=== PATIENT | female | born 1985 | race Two or more races ===

== ENCOUNTER 2019-04-17 08:33 | Emergency (ER) | payer OTHER ==
[~2019-04-17] VITALS: Ht 160 cm; Wt 61.6 kg
[2019-04-17 08:47] VITALS: BP 102/67
[2019-04-17] MEDS ORDERED: IV NORMAL SALINE 1,000ML 1,000 ML IV SCH (09:09)
--- NOTE | 2019-04-17 09:16 | PHYS DOC ---
Past History Past Medical History: Other Past Surgical History: Cholecystectomy, Alcohol Use: None Drug Use: None Adult General Chief Complaint Chief Complaint: LOWER BACK PAIN OR INJURY HPI HPI Patient is a 33-year-old female who presents with complaint of right-sided back pain that started 2 weeks ago. Patient indicates that pain has gotten much worse today to the point where she was having difficulty getting out of bed. She rates pain as fairly severe, especially when she has to move her trunk or bend. She indicates that walking worsens the pain as well.[] Review of Systems Review of Systems Constitutional: Denies fever or chills [] Respiratory: Denies cough or shortness of breath [] Cardiovascular: No additional information not addressed in HPI [] GI: Denies abdominal pain, nausea, vomiting or diarrhea [] : Denies dysuria or hematuria [] Musculoskeletal: Complains of right-sided back pain [] Integument: Denies rash or skin lesions [] Neurologic: Denies headache, focal weakness or sensory changes [] All other systems were reviewed and found to be within normal limits, except as documented in this note. Allergies Allergies Allergies Coded Allergies Type Severity Reaction Last Updated Verified No Known Drug Allergies 04/17/19 No Physical Exam Physical Exam Constitutional: Well developed, well nourished, no acute distress, non-toxic appearance. [] HENT: Normocephalic, atraumatic, bilateral external ears normal, oropharynx moist, no oral exudates, nose normal. [] Eyes: PERRLA, EOMI, conjunctiva normal, no discharge. [] Neck: Normal range of motion, no tenderness, supple. [] Cardiovascular: Regular rate and rhythm[] Lungs & Thorax: Bilateral breath sounds clear to auscultation [] Abdomen: Bowel sounds normal, soft, no tenderness. [] Skin: Warm, dry, no erythema, no rash. [] Back: There is palpable spasm with moderate tenderness to palpation in the right lumbar paraspinal musculature and significant tenderness over the right sacral sulcus. [] Extremities: No tenderness, no cyanosis, no clubbing, ROM intact, no edema. [] Neurologic: Alert and oriented X 3, no focal deficits noted. [] Current Patient Data Vital Signs Vital Signs Date Time Temp Pulse Resp B/P (MAP) Pulse Ox O2 Delivery O2 Flow Rate FiO2 04/17/19 08:47 97.9 85 16 96 Room Air EKG EKG [] Radiology/Procedures Radiology/Procedures [] Impressions: REASON: right flank pain times 2 weeks PROCEDURE: CT ABDOMEN PELVIS WO CONTRAST Examination: CT ABDOMEN PELVIS WO CONTRAST History: Right flank pain on 2 occasions in the past 2 weeks Comparison/Correlation: None Findings: Axial images of the abdomen and pelvis were obtained without contrast. Sagittal and coronal reformatted images were provided. Visualized lung bases are clear. Cholecystectomy noted. Liver, spleen, pancreas, and adrenal glands are normal. No hydronephrosis or hydroureter. Subtle medullary calcification bilaterally noted and this is greatest at the left renal interpolar level. Urinary bladder is mostly decompressed. Uterine fundus is somewhat globular in appearance. Right adnexal follicles are physiologic in appearance. No pelvic free fluid. No extraluminal gas or obstruction. No inflammatory change about the cecum. Appendix is unremarkable. Subtle high density within it which may represent retained contrast is noted. No enlarged abdominal or pelvic lymph nodes. Bony structures are unremarkable. Sacralization of L5 noted. Impression: Mild medullary nephrocalcinosis. No obstructive calculus or evidence of collecting system obstruction. Small right adnexal follicles are physiologic in appearance. PQRS Compliance Statement: One or more of the following individualized dose reduction techniques were utilized for this examination: 1. Automated exposure control 2. Adjustment of the mA and/or kV according to patient size 3. Use of iterative reconstruction technique Electronically signed by: Noe Pretty MD (04/17/2019 10:45 AM) [facility] Course & Med Decision Making Course & Med Decision Making Pertinent Labs and Imaging studies reviewed. (See chart for details) [] Dragon Disclaimer Dragon Disclaimer This electronic medical record was generated, in whole or in part, using a voice recognition dictation system. Departure Departure: Impression: Primary Impression: Acute lumbar myofascial strain Disposition: 01 HOME, SELF-CARE Condition: STABLE Referrals: PCP,NO (PCP) Patient Instructions: Back Pain, Adult Scripts Ketorolac Tromethamine (KETOROLAC TROMETHAMINE) 10 Mg Tablet 1 TAB PO PRN Q6HRS PRN for PAIN, #20 TAB Prov: NEIDA HATCH Jr. DO 04/17/19 Orphenadrine Citrate (ORPHENADRINE CITRATE) 100 Mg Tablet.er 1 TAB PO BID PRN for MUSCLE SPASMS, #14 TAB Prov: NEIDA HATCH Jr. DO 04/17/19 Hydrocodone Bit/Acetaminophen (NORCO 5-325 TABLET) 1 Each Tablet 1 TAB PO PRN Q6HRS PRN for PAIN, #12 TAB 0 Refills Prov: NEIDA HATCH Jr. DO 04/17/19 Problem Qualifiers Primary Impression: Acute lumbar myofascial strain Encounter type: initial encounter Qualified Codes: S39.012A - Strain of muscle, fascia and tendon of lower back, initial encounter NEIDA HATCH Jr. DO Apr 17, 2019 09:16
[2019-04-17] MEDS ORDERED: KETOROLAC 30 MG/ML VIAL. IV ONE (09:30)
[2019-04-17] MEDS ORDERED: ONDANSETRON PF 4 MG/2 ML VIAL. IV ONE (09:30)
[2019-04-17] MEDS ORDERED: ORPHENADRINE CITRATE 60 MG/2 ML VIAL. IV ONE (09:30)
[2019-04-17 09:35] LABS: BASO % 0 % (0-3); EOS # 0.3 x10^3/uL (0.0-0.7); EOS % 3 % (0-3); HEMATOCRIT 43.5 % (36.0-47.0); HEMOGLOBIN 14.4 g/dL (12.0-15.5); LYMPH # 1.6 x10^3/uL (1.0-4.8); LYMPH % 14 % (24-48); MEAN CORPUSCULAR HEMOGLOBIN 30 pg (25-35); MEAN CORPUSCULAR HGB CONC 33 g/dL (31-37); MEAN CORPUSCULAR VOLUME 92 fL (79-100); MONO % 9 % (0-9); NEUT # 8.6 x10^3uL (1.8-7.7); NEUT % 74 % (31-73); PLATELET COUNT 310 x10^3/uL (140-400); RED BLOOD COUNT 4.73 x10^6/uL (3.50-5.40); WHITE BLOOD COUNT 11.5 x10^3/uL (4.0-11.0)
[2019-04-17 09:46] LABS: ALBUMIN 3.8 g/dL (3.4-5.0); ALBUMIN/GLOBULIN RATIO 0.9 (1.0-1.7); CALCIUM 8.9 mg/dL (8.5-10.1); CREATININE 0.6 mg/dL (0.6-1.0); GFR 115.1; TOTAL BILIRUBIN 0.8 mg/dL (0.2-1.0)
[2019-04-17 09:46] LABS: BACTERIA,URINE FEW /HPF (0-FEW); BILIRUBIN,URINE NEG (NEG); CLARITY,URINE HAZY; COLOR,URINE YELLOW; GLUCOSE,URINE NEG (NEG); NITRITE,URINE NEG (NEG); SQUAMOUS EPITHELIAL CELL,UR MOD /LPF; UROBILINOGEN,URINE 0.2 mg/dL (0.2 mg/dL)
--- NOTE | 2019-04-17 10:48 | RAD ---
Examination: CT ABDOMEN PELVIS WO CONTRAST History: Right flank pain on 2 occasions in the past 2 weeks Comparison/Correlation: None Findings: Axial images of the abdomen and pelvis were obtained without contrast. Sagittal and coronal reformatted images were provided. Visualized lung bases are clear. Cholecystectomy noted. Liver, spleen, pancreas, and adrenal glands are normal. No hydronephrosis or hydroureter. Subtle medullary calcification bilaterally noted and this is greatest at the left renal interpolar level. Urinary bladder is mostly decompressed. Uterine fundus is somewhat globular in appearance. Right adnexal follicles are physiologic in appearance. No pelvic free fluid. No extraluminal gas or obstruction. No inflammatory change about the cecum. Appendix is unremarkable. Subtle high density within it which may represent retained contrast is noted. No enlarged abdominal or pelvic lymph nodes. Bony structures are unremarkable. Sacralization of L5 noted. Impression: Mild medullary nephrocalcinosis. No obstructive calculus or evidence of collecting system obstruction. Small right adnexal follicles are physiologic in appearance. PQRS Compliance Statement: One or more of the following individualized dose reduction techniques were utilized for this examination: 1. Automated exposure control 2. Adjustment of the mA and/or kV according to patient size 3. Use of iterative reconstruction technique Electronically signed by: Noe Pretty MD (04/17/2019 10:45 AM) [facility]
[2019-04-17] MEDS ORDERED: KETO10TA PO (11:32)
[2019-04-17] MEDS ORDERED: HYDR-3165 PO (11:32)
[2019-04-17] MEDS ORDERED: ORPH-16 PO (11:32)
== END 2019-04-17 12:06 | disposition home or self-care (01) ==
LOC: ER 08:33
DX: S39.012A Strain of muscle, fascia and tendon of lower back, initial encounter (principal); Z90.49 Acquired absence of other specified parts of digestive tract; Z98.890 Other specified postprocedural states; X58.XXXA Exposure to other specified factors, initial encounter; Y93.89 Activity, other specified; Y92.89 Other specified places as the place of occurrence of the external cause; Y99.8 Other external cause status
CPT/HCPCS: 36415; 74176; 80053; 81001; 85025; 96374; 96375; 99285; J1885; J2360; J2405; J3010; J7030